=== PATIENT | female | born 1955 | race Two or more races ===

== ENCOUNTER 2020-12-31 07:30 | Day surgery (SDC) | payer OTHER ==
[~2020-12-31 07:30] MED LIST: CLONAZEPAM0.5 MG PO; CRESTOR10 MG PO; PEPCID AC20 MG PO; PROTONIX40 MG PO; ZETIA10 MG PO
== END 2020-12-31 14:00 | disposition home or self-care (01) ==
LOC: CIR.AMB 07:30
PROVIDERS: ATTEND Specialist
DX: N85.01 Benign endometrial hyperplasia (principal); Z20.822 Contact with and (suspected) exposure to COVID-19